=== PATIENT | male | born 1950 | race Caucasian/White ===

== ENCOUNTER → 2018-04-20 09:53 | Outpatient (CLI) | payer OTHER, SELFPAY ==
[2018-04-20 10:25] LABS: Add Manual Diff / Slide Review NO; Basophils Percent Auto 0.4 % (0-2); Eosinophils Percent Auto 2.8 % (2-4); Hematocrit 41.7 % (41-53); Hemoglobin 14.2 g/dL (13.5-17.5); Lymphocytes Percent Auto 22.9 % (25-40); Mean Corpuscular Hemoglobin 32.6 PG (26-34); Mean Corpuscular Volume 96.1 fL (80-100); Monocytes Percent Auto 9.3 % (3-14); Neutrophils Absolute Auto 4400 /uL (3000-5900); Neutrophils Percent Auto 64.6 % (50-75); Platelet Count 151 X10^3/uL (150-400); Red Blood Cell Count 4.34 X10^6/uL (4.5-5.9); Red Cell Distribution Width 13.2 % (11.6-14.8); White Blood Cell Count 6.7 X10^3/uL (4.5-11.0)
[2018-04-20 11:07] LABS: Alanine Aminotransferase 47 IU/L (21-72); Albumin 3.9 g/dL (3.5-5.0); Albumin Globulin Ratio 1.5 (1.0-2.8); Alkaline Phosphatase 49 U/L (38-126); Aspartate Aminotransferase 80 IU/L (17-59); Bilirubin Total 0.8 mg/dL (0.2-1.3); Bilirubin Unconjugated 0.5 mg/dL (0.0-1.1); Globulin 2.6 g/dL (1.7-4.1); HEMOLYSIS < 15 (0-50); Total Protein 6.5 g/dL (6.3-8.2)
== END ==
PROVIDERS: Family Provider Internal Medicine; PCP Internal Medicine; Visit Provider Podiatrist
DX: B35.1 Tinea unguium (principal)
CPT/HCPCS: 36415; 80076; 85025

== ENCOUNTER 2018-06-20 07:12 | Emergency (ER) | payer OTHER, SELFPAY ==
[2018-06-20 07:20] VITALS: BP 118/88; PULSE 85; RESP 20; TEMP 37.1; O2SAT 96; BMI 26.6
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
[2018-06-20 08:18] VITALS: BP 132/80; PULSE 63; RESP 18; O2SAT 97
[2018-06-20 09:00] VITALS: BP 132/85; PULSE 60; RESP 14; O2SAT 100
== END 2018-06-20 09:03 | disposition home or self-care (01) ==
PROVIDERS: Emergency Provider Emergency Medicine; Family Provider Internal Medicine; PCP Internal Medicine
DX: S13.4XXA Sprain of ligaments of cervical spine, initial encounter (principal); M54.5 Low back pain; V49.40XA Driver injured in collision with unspecified motor vehicles in traffic accident, initial encounter
CPT/HCPCS: 70450; 72125; 99282; 99283

== ENCOUNTER → 2018-07-24 08:01 | Outpatient (CLI) | payer OTHER, SELFPAY ==
[2018-07-24 09:06] LABS: Alanine Aminotransferase 25 IU/L (21-72); Albumin 4.1 g/dL (3.5-5.0); Albumin Globulin Ratio 1.7 (1.0-2.8); Alkaline Phosphatase 40 U/L (38-126); Aspartate Aminotransferase 66 IU/L (17-59); BUN Creatinine Ratio 26.4 (6-22); Bilirubin Total 0.7 mg/dL (0.2-1.3); Blood Urea Nitrogen 29 mg/dL (9-20); Calcium 9.1 mg/dL (8.4-10.2); Carbon Dioxide 30 mmol/L (22-32); Chloride 107 mmol/L (98-107); Cholesterol 174 mg/dL (140-199); Estimated Glomerular Filt Rate > 60.0 mL/min (>60); Globulin 2.4 g/dL (1.7-4.1); Glucose 93 mg/dL (80-110); HDL Cholesterol 68 mg/dL (40-60); HEMOLYSIS < 15 (0-50); LDL Cholesterol Calculated 90 mg/dL (<100); Potassium 4.4 mmol/L (3.4-5.1); Sodium 144 mmol/L (137-145); Total Protein 6.5 g/dL (6.3-8.2); Triglycerides 80 mg/dL (35-150); Uric Acid 5.9 mg/dL (3.5-8.5)
[2018-07-24 09:35] LABS: Prostate Specific Antigen Scrn 1.26 ng/mL (0.1-4.0)
== END ==
PROVIDERS: Family Provider Internal Medicine; PCP Internal Medicine; Visit Provider Internal Medicine
DX: I10 Essential (primary) hypertension (principal); E78.2 Mixed hyperlipidemia; M10.9 Gout, unspecified
CPT/HCPCS: 36415; 80053; 80061; 84550; G0103

== ENCOUNTER 2018-12-26 16:45 | Outpatient (RCR) | payer OTHER, SELFPAY ==
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
== END 2019-01-15 12:16 ==
LOC: PHYS 16:45
PROVIDERS: Family Provider Internal Medicine; PCP Internal Medicine; Visit Provider Internal Medicine
DX: M54.9 Dorsalgia, unspecified (principal)
CPT/HCPCS: 97110; 97140; 97162

== ENCOUNTER → 2019-04-15 06:58 | Outpatient (CLI) | payer OTHER, SELFPAY ==
[2019-04-15 09:05] LABS: HEMOLYSIS < 15 (0-50); Iron 78 ug/dL (49-181)
[2019-04-15 09:06] LABS: Alanine Aminotransferase 17 IU/L (21-72); Albumin Globulin Ratio 1.5 (1.0-2.8); Alkaline Phosphatase 45 U/L (38-126); Aspartate Aminotransferase 41 IU/L (17-59); Bilirubin Total 0.5 mg/dL (0.2-1.3); Bilirubin Unconjugated 0.5 mg/dL (0.0-1.1); Blood Urea Nitrogen 22 mg/dL (9-20); Calcium 9.2 mg/dL (8.4-10.2); Carbon Dioxide 28 mmol/L (22-32); Chloride 105 mmol/L (98-107); Estimated Glomerular Filt Rate > 60.0 mL/min (>60); Globulin 2.6 g/dL (1.7-4.1); Glucose 97 mg/dL (80-110); HEMOLYSIS < 15 (0-50); Potassium 4.3 mmol/L (3.4-5.1); Sodium 139 mmol/L (137-145); Total Protein 6.6 g/dL (6.3-8.2)
[2019-04-15 09:16] LABS: Percent Iron Saturation 24 % (20-50); Total Iron Binding Capacity 328 ug/dL (261-462); Transferrin 262 mg/dL (206-381)
[2019-04-15 09:33] LABS: Hepatitis B Surface Antigen NEGATIVE s/c (NEGATIVE)
[2019-04-15 09:51] LABS: Hep C Virus Ab w/Reflex Quant NEGATIVE s/c (NEGATIVE)
[2019-04-17 14:43] LABS: Ceruloplasmin 26 mg/dL (18-36)
== END ==
PROVIDERS: PCP Internal Medicine; Visit Provider Internal Medicine
DX: R94.5 Abnormal results of liver function studies (principal)
CPT/HCPCS: 36415; 80048; 80076; 82390; 82525; 83540; 83550; 86803; 87340

== ENCOUNTER → 2019-11-25 09:48 | Outpatient (CLI) | payer OTHER, SELFPAY ==
[2019-11-25 10:39] LABS: Alanine Aminotransferase 13 IU/L (<50); Albumin 4.3 g/dL (3.5-5.0); Albumin Globulin Ratio 1.9 (1.0-2.8); Alkaline Phosphatase 53 U/L (38-126); Aspartate Aminotransferase 31 IU/L (17-59); BUN Creatinine Ratio 20.8 (6-22); Bilirubin Total 0.8 mg/dL (0.2-1.3); Blood Urea Nitrogen 25 mg/dL (9-20); Calcium 9.3 mg/dL (8.4-10.2); Carbon Dioxide 28 mmol/L (22-32); Chloride 104 mmol/L (98-107); Cholesterol 232 mg/dL (140-199); Estimated Glomerular Filt Rate > 60.0 mL/min (>60); Globulin 2.3 g/dL (1.7-4.1); Glucose 90 mg/dL (80-110); HDL Cholesterol 77 mg/dL (40-60); HEMOLYSIS < 15 (0-50); LDL Cholesterol Calculated 143 mg/dL (<100); Potassium 4.7 mmol/L (3.4-5.1); Sodium 138 mmol/L (137-145); Total Protein 6.6 g/dL (6.3-8.2); Triglycerides 61 mg/dL (35-150)
[2019-11-25 11:08] LABS: Prostate Specific Antigen Scrn 1.68 ng/mL (0.1-4.0)
== END ==
PROVIDERS: PCP Internal Medicine; Visit Provider Internal Medicine
DX: I10 Essential (primary) hypertension (principal); E78.2 Mixed hyperlipidemia; Z12.5 Encounter for screening for malignant neoplasm of prostate
CPT/HCPCS: 36415; 80053; 80061; G0103

== ENCOUNTER → 2019-12-19 13:07 | Outpatient (CLI) | payer OTHER, SELFPAY ==
[2019-12-19 13:52] LABS: Add Manual Diff / Slide Review NO; Basophils Absolute Auto 0 /uL (0-100); Basophils Percent Auto 0.5 % (0-2); Eosinophils Absolute Auto 100 /uL (0-450); Eosinophils Percent Auto 1.7 % (2-4); Hematocrit 43.2 % (41-53); Hemoglobin 14.8 g/dL (13.5-17.5); Lymphocytes Absolute Auto 1500 /uL (1100-4500); Lymphocytes Percent Auto 18.3 % (25-40); Mean Corpuscular HGB Conc 34.3 % (30-36); Monocytes Absolute Auto 600 /uL (0-900); Monocytes Percent Auto 7.4 % (3-14); Neutrophils Absolute Auto 5900 /uL (1500-7000); Neutrophils Percent Auto 72.1 % (50-75); Platelet Count 152 X10^3/uL (150-400); Red Cell Distribution Width 13.9 % (11.6-14.8); White Blood Cell Count 8.2 X10^3/uL (4.5-11.0)
[2019-12-19 14:07] LABS: Alanine Aminotransferase 18 IU/L (<50); Albumin Globulin Ratio 1.4 (1.0-2.8); Alkaline Phosphatase 55 U/L (38-126); Aspartate Aminotransferase 43 IU/L (17-59); Bilirubin Total 0.5 mg/dL (0.2-1.3); Blood Urea Nitrogen 22 mg/dL (9-20); Calcium 9.6 mg/dL (8.4-10.2); Carbon Dioxide 28 mmol/L (22-32); Chloride 102 mmol/L (98-107); Estimated Glomerular Filt Rate > 60.0 mL/min (>60); Globulin 2.8 g/dL (1.7-4.1); Glucose 170 mg/dL (80-110); HEMOLYSIS < 15 (0-50); Potassium 3.6 mmol/L (3.4-5.1); Sodium 138 mmol/L (137-145); Total Protein 6.8 g/dL (6.3-8.2)
== END ==
PROVIDERS: PCP Internal Medicine; Visit Provider Orthopaedic Surgery Orthopaedic Surgery of the Spine
DX: Z01.818 Encounter for other preprocedural examination (principal); Z01.812 Encounter for preprocedural laboratory examination
CPT/HCPCS: 36415; 80053; 85025; 93005; 93010

== ENCOUNTER 2020-02-02 06:07 | Inpatient (IN) | payer OTHER, SELFPAY ==
[2020-01-22 09:00] VITALS: BMI 29.5
[2020-02-02] VITALS (14 sets, daily range): BP systolic 118–148; BP diastolic 67–88; PULSE 65–98; RESP 12–18; TEMP 36.1–36.9; O2SAT 93–97; BMI 29.1
--- NOTE | 2020-02-02 | DI.RAD.S_ITS ---
PROCEDURE: XR CERVICAL SPINE 2V OR 3V INDICATIONS: C6-7. C7-T1 ACDF TECHNIQUE: 3 view(s) of the cervical spine were acquired. COMPARISON: None. FINDINGS: Bones: Immediate postoperative evaluation showing C6-T1 anterior fusion plating with interbody disc prosthesis devices at the 2 intervening disc levels. Soft tissues: No prevertebral soft tissue swelling. IMPRESSION: Normal alignment after C6-T1 anterior fusion plating. Dictated by: Blaise Roper M.D. on 02/02/2020 at 11:54 Approved by: Blaise Roper M.D. on 02/02/2020 at 11:55
[2020-02-02] MEDS: LACTATED RINGERS 1,000 ML 42 ML IV ×3 (06:45→11:09)
[2020-02-02] MEDS: CEFAZOLIN 2 GM/100 ML FROZ.PIGGY IV ×3 (07:56→23:36)
--- NOTE | 2020-02-02 07:59 | PM.PREOP ---
Pre-operative Note Interval Note History & Physical reviewed/Exam performed by Physician: Yes Changes to H&P: No
--- NOTE | 2020-02-02 08:43 | SUR.OPER ---
Supine, head on gel donut. Arms padded with gel pads, tucked at sides, towel roll under shoulders. Safety belt at thigh. Legs uncrossed.
[2020-02-02] MEDS: BUPIVACAINE 0.25% W/ EPI 30 ML VIAL INJ (09:30)
--- NOTE | 2020-02-02 10:48 | P.OP_ITS ---
Operative Date/Time/Diagnoses Date of procedure: 02/02/20 Time of procedure: 07:50 Pre-op diagnosis: 1. C6-7, C7-T1 spinal stenosis 2. C6-7, C7-T1 spondylosis with radiculopathy Post-op diagnosis: same Procedure & Clinicians Procedure: 1. C6-7, C7-T1 anterior cervical diskectomy and fusion 2. C6-7, C7-T1 anterior interbody cage placement 3. C6-7, C7-T1 anterior instrumentation with plate and screw placement in C6 and C7 and T1 vertebrae 4. Utilization of microsurgical technique and operating microscope Same procedure as scheduled: Yes Indications: Patient has been having chronic neck pain and worsening cervical radiculopathy. Patient failed multiple conservative management with worsening pain weakness and numbness in her upper extremity. Patient has been having difficulty performing activity of daily living. After discussing risks benefits of treatment options, patient elected proceed with surgery. Surgeon: Georges Ray Public Safety Telecommunicator: Alisha Christie Click Yes if Unassisted: No Anesthesia Type: General Operative Notes Closure Type: primary Specimen(s): none sent Prosthetic devices, grafts, tissues, transplants, or devices: Globus Extend plate, PEEK cages Estimated Blood Loss (mL): 20 Blood products transfused: none Procedure in detail: Patient was seen in the preoperative area. Risks and benefits of the surgery was discussed with the patient. Operative consent was obtained and placed in the chart. Patient was then taken to the operative room. Prophylactic antibiotic was given less than 0.5 hr prior to skin incision. General anesthesia was administered. Patient was placed into a supine position on her radiolucent table. Bilateral shoulders were taped down to allow proper C- arm imaging. Anterior cervical area was prepped and draped in a sterile fashion. Time-out was performed at this time. Using lateral C-arm imaging, the level between C6 and T1 was identified and marked on patient's neck. A oblique incision from midline towards medial border of sternocleidomastoid muscle was made. The platysma muscle was incised in line with skin incision. Metzenbaum scissor was used to develop the plane between the medial border of sternocleidomastoid d and the strap muscles medially. The carotid sheath and its contents were identified and protected behind the hand- held retractor during the entire case. The plane between the carotid sheath and strap muscles was developed with Metzenbaum scissors. Dissection was made down to the level of the anterior cervical fascia. Longus colli muscle was incised on the anterior aspect of vertebral bodies bilaterally from C6-T1. Spinal needle was placed into the C6-7 disc space and confirmed with lateral C-arm imaging. Using microsurgical technique and operative microscope, anterior cervical diskectomy was performed at C6-7, C7-T1 level. This was done by removing the disc material, removing the anterior and posterior osteophytes posterior longitudinal ligaments along with performing bilateral foraminotomies at both levels. Patient was found to have severe central and foraminal stenosis at both levels. Patient's stenosis was fully decompressed after decompression was completed. After the diskectomy was completed, 2 anterior interbody cages were obtained. The cages were packed with DBM bone grafting material. One cage each along with the bone grafting material was then packed into the interbody spaces from C6-7, C7-T1 with one cage into each interbody level. After the cages were placed, the anterior cervical plate was stabilized to the C6-7, C7-T1 vertebrae using 2 screws at each each level. Total 6 screws were placed. After confirming placement of the hardware with AP and lateral C-arm imaging, the screws were locked into the plate using the locking mechanism and torque limiting screwdriver. After the hardware was placed and confirmed with AP and lateral C-arm imaging, the wound was irrigated with sterile normal saline. The platysma muscle and the subcutaneous tissue was closed with 2-0 Vicryl. The skin was closed with 4-0 Monocryl and Steri-Strips. Patient tolerated the procedure well. Patient was transferred recovery room in stable condition. There were no complications. Complications: none Post-operative Condition: stable Disposition: PACU Plan for aftercare: Admit to hospital for observation
--- NOTE | 2020-02-02 11:06 | SUR.PHASEI ---
pt arrived to pacu flailing around and turning side to side. Denies pain at present time Pt states he has anxiety at times and would like some medication for anxiety.
[2020-02-02] MEDS: LORazepam 2 MG/ML INJ 0.5 MG IV (11:11)
--- NOTE | 2020-02-02 13:50 | PT.IIE ---
Current Diagnoses Spondylolisthesis, cervical region (02/02/20) Spinal stenosis, cervical region (02/02/20) Surgery Performed Operation Date: 02/02/20 07:45 Actual Procedures p C6-7, C7-T1 ACDF w/ anterior instrumentation - Georges Ray MD Surgical History (Last Updated 01/22/20 @ 09:08 by Jessica Owens, RN) Anesthesia (Resolved) History of surgical removal of testicle (Resolved ~1978) Hx of bilateral cataract extraction (Acute ~2016) S/P epidural steroid injection (Acute ~2007) Status post debridement (Resolved ~2013) Medical History (Last Updated 01/22/20 @ 09:12 by Jessica Owens RN) Arthralgia (Chronic 01/29/18) Arthritis (Acute) Benign paroxysmal positional vertigo (Chronic) Cardiac arrhythmia (Chronic) Chicken pox (Resolved ~1957) Depression (Acute) Dorsalgia (Chronic 01/29/18) Erectile dysfunction (Chronic) Essential hypertension (Chronic) Fractures (Resolved ~2012) Gastroesophageal reflux disease without esophagitis (Chronic) Generalized anxiety disorder (Chronic 08/10/11) Gout (Acute) Gout of multiple sites (Chronic) Hearing deficit (Chronic) Hearing impaired (Acute) Herpes (Resolved ~1977) HLD (hyperlipidemia) (Acute) HTN (hypertension) (Acute) Major depression in complete remission (Chronic 08/10/11) Measles (Resolved ~1965) Mixed hyperlipidemia (Chronic) Rosacea (Acute) Sciatica (Acute) Uncomplicated opioid dependence (Resolved 01/29/18) Physical Therapy Inpatient Evaluation/Re-Eval M1 PT/OT-IP Prior Functional Status Start: 02/02/20 13:25 Freq: NEEDED Status: Active Protocol: Document 02/02/20 14:26 LRN (Rec: 02/02/20 15:03 LRN [id number]) Medical Review Prior Functional Status Medical History Reviewed Yes Diet/Fluid Consistency Regular Communication Normal Mobility and Gait Without assistive device Activities of Daily Living and IADL's Independent Prior Functional Level (Other details) Amb without assistive device Social History Household Members spouse Living Arrangements Mobile home Number of Floors (Floors) One Floor Number of Stairs To Enter/Railing? 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 PT-IP Current Condition Start: 02/02/20 13:25 Freq: NEEDED Status: Active Protocol: Document 02/02/20 14:26 LRN (Rec: 02/02/20 15:03 LRN [id number]) Physical Therapy Current Condition Current Condition Evaluation Date 02/02/20 Treatment Diagnosis Post op: C6-7, C7-T1 ACDF w/ anterior instrumentation Onset Date 02/02/20 Precautions Cervical Spine Precautions Soft Collar for Comfort,No Heavy Lifting,Log Roll Brace Neck soft brace Weight Bearing Status Weight Bearing Status Full Weight Bearing M3 PT-IP Subjective Start: 02/02/20 13:25 Freq: NEEDED Status: Active Protocol: Document 02/02/20 14:26 LRN (Rec: 02/02/20 15:03 LRN [id number]) Subjective Physical Therapy Visit Type Type Initial Evaluation Visit Start Time 13:50 Visit Stop Time 14:30 Total Visit Minutes 40 Physical Therapy Visit Comments Patient Comments c/o foggy head on standing. After ambulation became nauseated. Nausea subsided after supine lying ~10'. Patient Goals Pt goal is to be discharged tomorrow to home. Therapy Pain Assessment Pain When Pain Assessed At Rest Pain Present Pain Present Pain Reported Location Bilateral Shoulder Intensity 5 Scale Used Numeric (1 - 10) M4 PT-IP Mobility and Gait Start: 02/02/20 13:25 Freq: NEEDED Status: Active Protocol: Document 02/02/20 14:26 LRN (Rec: 02/02/20 15:03 LRN [id number]) PT-Bed Mobility Assessment Rolling Type of Rolling Log Rolling,Bilateral Level of Assist Independent Supine to Sit Supine to Sit Independent Sit to Supine Sit to Supine Independent PT-Transfer Assessment Sit to and From Stand Sit to and from Stand Independent Equipment Transfer Assistive Device Gait Belt Transfers Transfer Destination Toilet Transfer Technique Walked to bathroom Transfer Ability Level of Assist Independent Gait Assessment Gait Gait Assistance Required: Independent,Standby Assistance Distance (Feet) 50 Able to Maintain Weight Bearing Status Yes During Gait Assistive Devices Assistive Device Gait Belt Orthotic/Prosthetic Devices or Brace: Yes Gait Deviations General Gait Pattern Within Normal Limits Factors Limiting Gait Function Factors Limiting Gait Function Pain Comments Gait Comments Pt wore neck brace throughout the evaluation. Function limited due to nausea vs pain. Stair Climbing Assessment Comments Stair Climbing Comments Pt became nauseated after gait ; therefore unabe to assess stair ambulation. PT-Balance Assessment Sitting Balance and Reactions Static Sitting Balance Ability Normal Dynamic Sitting Balance Ability Good Standing Balance and Reactions Static Standing Balance Ability Good Comments Other Balance Tests/Deviations/Treatment Pt able to walk steadily : without difficulty. M5 PT-IP Objective Assessments Start: 02/02/20 13:25 Freq: NEEDED Status: Active Protocol: Document 02/02/20 14:26 LRN (Rec: 02/02/20 15:03 LRN [id number]) Orientation Orientation/Cognition Level of Alertness Alert Orientation Name Language Function Ability No Deficits Noted Safety Awareness Understands Safety Issues Memory Description No Deficits Noted Gross Range of Motion Upper Extremity ROM Assessment Within Functional Limits Lower Extremity ROM Assessment Within Functional Limits Strength Upper Extremity Strength Assessment Bilaterally Impaired Lower Extremity Strength Assessment Within Functional Limits Comments Strength Comments Strength testing deferred and limited to 3/5 without difficulty. M6 PT-IP Treatment Start: 02/02/20 13:25 Freq: NEEDED Status: Active Protocol: Document 02/02/20 14:26 LRN (Rec: 02/02/20 15:03 LRN [id number]) Physical Therapy Treatment Education Education Provided Precautions Other Treatments Other Treatment Performed Issued & reviewed post op cervical guidelines. M7 PT-IP Assessment and Plan Start: 02/02/20 13:25 Freq: NEEDED Status: Active Protocol: Document 02/02/20 14:26 LRN (Rec: 02/02/20 15:03 LRN [id number]) PT Summary Assessment and Plan Potential Rehabilitation Potential Excellent Status of Condition at Evaluation Evolving Summary Impairments Pain,ROM,Activity Tolerance Assessment Summary Pt presents with limited neck mobility as expected following his post-op C6-7, C7-T1 anterior C/S diskectomy & fusion, C6-C7, C7- T1 anterior interbody cahge placement l& C6-&, C7-T1 anterior instumentation w/ plate & screw in C6 & C7 & T1 vertebrae. Pt is limited with activity tolerance after getting out of bed to walk around his room. He needed education in log roll technique to get out of bed. After ambulation he became nauseous requiring resting in supine. Pt shows good mobility, but poor transfer mechanics and poor endurance today. He is expected to do well with therapy with more time and opportunity to get in /out of bed properly. Goals Bed Mobility Goal Independent Transfer Goal Independent Gait Goal Independent Gait Distance 100' Days to Meet Goals 1 Frequency of Treatment Frequency Of Treatment Twice a Day Treatment Plan Physical Therapy Treatment Plan Transfer Training,Gait Training,Post Op Education Other Recommendations and Next Treatment Log roll for appropriate Focus sequencing and transfers in/ out of bed. Recommendations To Nursing Amount of Assist Needed Standby Assistance Discharge Recommendations PT Discharge Recommendations Home with Assistance Other Discharge Recommendations Pt to cont to use his soft cervical collar for comfort. Transportation Needs at Discharge Private Vehicle
[2020-02-02] MEDS: ONDANSETRON 4 MG/2 ML INJ IV (14:19)
[2020-02-02] MEDS: SODIUM CHLORIDE 0.9% 1,000 ML 100 ML IV ×2 (14:57→23:37)
[2020-02-02] MEDS: GABAPENTIN 300 MG CAPSULE PO ×2 (16:30→21:26)
[2020-02-02] MEDS: OXYCODONE IR 5 MG TABLET 10 MG PO ×2 (17:11→21:29)
[2020-02-02] MEDS: DOCUSATE 100 MG CAPSULE PO (21:26)
[2020-02-02] MEDS: SENNOSIDES 8.6 MG TABLET 17.2 MG PO (21:26)
[2020-02-02] MEDS: CYCLOBENZAPRINE 5 MG TABLET PO (23:37)
[2020-02-03] MEDS: ONDANSETRON 4 MG/2 ML INJ IV
[2020-02-03 00:08] VITALS: BP 147/92; PULSE 66; RESP 16; TEMP 37.7; O2SAT 95
--- NOTE | 2020-02-03 01:32 | PC.NURSE ---
Patient had emesisx2 at the start of shift, zofran 4mg IV given at 0030. Patient has minimal pain 2/10. VSS. Patient has wound incision bandage gauze w/ tagaderm which is clean/dry and intact. Patient CMS good. Patient was educated about the use of IS.
[2020-02-03 05:18] VITALS: BP 136/88; PULSE 64; RESP 18; TEMP 36.6; O2SAT 97
[2020-02-03] MEDS: OXYCODONE IR 5 MG TABLET 10 MG PO ×2 (05:29→10:34)
--- NOTE | 2020-02-03 07:37 | PM.PNPO.1 ---
Subjective Subjective Date Patient Seen: 02/03/20 Time Patient Seen: 07:38 Interval history: POD #1 s/p C6-7, C7-T1 ACDF with Dr. Ray. His pain is well controlled with Oxycodone and Flexeril. He does have nausea since surgery. He is voiding without difficulty or assistance. He is ambulating safely. No difficulty swallowing. Exam Vital Signs (past 8 hours): - 02/03/20 00:08 02/03/20 05:18 Temperature 99.8 F H 97.8 F Pulse Rate 66 64 Respiratory Rate 16 18 Blood Pressure 147/92 H 136/88 Pulse Oximetry 95 97 Oxygen Delivery Method Nasal Cannula Oxygen Flow Rate 0 Narrative Exam Narrative: Patient is alert orient x3. Resting in bed comfortably. Anterior neck dressing is CDI. Soft collar in place. Automotive Teacher strength strong equal. No hoarseness. Assessment & Plan Post-op Postoperative Procedures: Procedures Operation Date: 02/02/20 07:45 Actual Procedures Side Surgeon p C6-7, C7-T1 ACDF w/ anterior instrumentation Georges Ray MD Patient mobilize with physical therapy today. Continue current pain control. Patient will discharge home with Zofran for nausea. Plan to DC home today if ambulating safely with adequate pain control. Quality VTE Deep Vein Thrombosis/Pulmonary Embolism Present on Admission: No
[2020-02-03 07:40] VITALS: BP 153/94; PULSE 64; RESP 16; TEMP 36.8; O2SAT 98
--- NOTE | 2020-02-03 08:44 | OT.IP.EVAL ---
Current Diagnoses Spondylolisthesis, cervical region (02/02/20) Spinal stenosis, cervical region (02/02/20) Surgery Performed Operation Date: 02/02/20 07:45 Actual Procedures p C6-7, C7-T1 ACDF w/ anterior instrumentation - Georges Ray MD Past Medical History (Last Updated 01/22/20 @ 09:12 by Jessica Owens, RN) Arthralgia (Chronic 01/29/18) Arthritis (Acute) Benign paroxysmal positional vertigo (Chronic) Cardiac arrhythmia (Chronic) Chicken pox (Resolved ~1957) Depression (Acute) Dorsalgia (Chronic 01/29/18) Erectile dysfunction (Chronic) Essential hypertension (Chronic) Fractures (Resolved ~2012) Gastroesophageal reflux disease without esophagitis (Chronic) Generalized anxiety disorder (Chronic 08/10/11) Gout (Acute) Gout of multiple sites (Chronic) Hearing deficit (Chronic) Hearing impaired (Acute) Herpes (Resolved ~1977) HLD (hyperlipidemia) (Acute) HTN (hypertension) (Acute) Major depression in complete remission (Chronic 08/10/11) Measles (Resolved ~1965) Mixed hyperlipidemia (Chronic) Rosacea (Acute) Sciatica (Acute) Uncomplicated opioid dependence (Resolved 01/29/18) Surgical History (Last Updated 01/22/20 @ 09:08 by Jessica Owens, NATY) Anesthesia (Resolved) History of surgical removal of testicle (Resolved ~1978) Hx of bilateral cataract extraction (Acute ~2016) S/P epidural steroid injection (Acute ~2007) Status post debridement (Resolved ~2013) Occupational Therapy Inpatient Evaluation/Re-Eval M1 PT/OT-IP Prior Functional Status Start: 02/02/20 13:25 Freq: NEEDED Status: Active Protocol: Document 02/02/20 14:26 LRN (Rec: 02/02/20 15:03 LRN [id number]) Medical Review Prior Functional Status Medical History Reviewed Yes Diet/Fluid Consistency Regular Communication Normal Mobility and Gait Without assistive device Activities of Daily Living and IADL's Independent Prior Functional Level (Other details) Amb without assistive device Social History Household Members spouse Living Arrangements Mobile home Number of Floors (Floors) One Floor Number of Stairs To Enter/Railing? 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 Prior Functional Level (Other details) Amb without assistive device Social History Household Members spouse Living Arrangements Mobile home Number of Floors (Floors) One Floor Number of Stairs To Enter/Railing? 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 instrum Diagnosis Onset Date 02/02/20 Post Operative Precautions Cervical Spine Precautions Soft Collar for Comfort,No Heavy Lifting,Log Roll Weight Bearing Status Weight Bearing Status Weight Bear as Tolerated M3 OT- IP Subjective and Pain Start: 02/03/20 09:26 Freq: Status: Active Protocol: Document 02/03/20 08:25 [facility] (Rec: 02/03/20 09:42 [facility] [id number]) OT- Subjective Occupational Therapy Visit Type Type Initial Evaluation Visit Start Time 08:25 Visit Stop Time 08:44 Total Visit Minutes 19 Occupational Therapy Visit Comments Patient Comments Pt agreeable to do OT eval. Patient/Caregiver Goals To go home. OT Pain Assessment Pain When Pain Assessed At Rest Pain Present Pain Present Pain Reported Location Bilateral Shoulder Intensity 3 Scale Used Numeric (1 - 10) M4 OT- IP ADL's Start: 02/03/20 09:26 Freq: Status: Active Protocol: Document 02/03/20 08:25 [facility] (Rec: 02/03/20 09:42 [facility] [id number]) OT [facility] Comments OT Self-Feeding Comments Educated pt on eating softer food, slow rate, cold food can be helpful and to sit upright . Information sheet of swallowing suggested gone over with pt. OT ADL-Grooming Comments OT Grooming Comments Educated to lean forwards at hips or spit into a cup for tooth brushing. OT ADL-Dressing General Eval Upper Body Dressing Ability Independent Lower Body Dressing Ability Independent Comments OT Dressing Comments After initial education, pt able to independently mindy/ doff cervical soft collar . OT ADL-Toileting General Evaluation Toileting Ability Independent Comments OT Toileting Comments Pt independently using the toilet on his own. OT ADL-Bathing Comments OT Bathing Comments Pt states to shower at home. M5 OT- IP IADL's Start: 02/03/20: Freq: Status: Active Protocol: Document 02/03/20:25 [facility] (Rec: 02/03/20 09:42 [facility] [id number]) OT-Instrumental Activities of Daily Living Home Safety Awareness Home Safety Comments Pt's to assist with all IADL needs and care for all the animals at home including dogs, horses, and parrot. Medication Management Medication Management No Deficits Identified Money Management Money Management Comments Pt's does the bills at home. Meal Preparation Meal Preparation Caregiver Provides Assist Pressurization Mechanic Pressurization Mechanic Caregiver Provides Assist Driving Driving Comments Pt aware not to drive for two weeks initially or until cleared by surgeon. M6 OT- IP Functional Cognition Start: 02/03/20: Freq: Status: Active Protocol: Document 02/03/20 08:25 [facility] (Rec: 02/03/20 09:42 [facility] [id number]) Cognitive Factors Limiting Selfcare Function Cognitive Ability Level of Alertness Alert Patient Orientation Name,Age,Birthday,Month,Date, Year,Day of Week,Place, Situation Attention Span Ability Capable of Focused Attention, Capable of Sustained Attention Ability to Follow Commands Able to Follow Multi-Step Commands Memory Description No Deficits Noted Safety Awareness No Deficits Noted Problem Solving Ability No deficits Noted Cognitive Comments Cognitive Assessment Comments No cognitive deficits noted. OT- Vision and Hearing OT- Hearing Assessment OT- Hearing Assessment WFL OT- Vision Assessment Visual Acuity WFL M7 OT- IP Mobility and Balance Start: 02/03/20: Freq: Status: Active Protocol: Document 02/03/20 08:25 [facility] (Rec: 02/03/20 09:42 [facility] [id number]) OT- Bed Mobility Assessment Supine to Sit Supine to Sit Assist Standby Assistance Sit to Supine Sit to Supine Assist Standby Assistance OT-Transfer Assessment Sit to and From Stand Sit to and from Stand Independent Transfers Transfer Ability Independent Technique Transfer Destination Bed,Chair,Toilet Transfer Technique Stand Step Pivot Devices Transfer Assistive Devices None Comments Mobility Comments Initially pt pulling up into long sitting due to habit and had to educate pt on log rolling to roll to his side first and then push up on his arms therefore putting less strain on his neck while getting up and down from the bed. OT- Gait Assessment Gait Gait Assistance Required: Independent OT- Balance Assessment Sitting Balance and Reactions Static Sitting Balance Ability Normal Dynamic Sitting Balance Ability Normal Standing Balance and Reactions Static Standing Balance Ability Normal Dynamic Standing Balance Ability Good M8 OT- IP Objective Assessments Start: 02/03/20 09:26 Freq: Status: Active Protocol: Document 02/03/20 08:25 [facility] (Rec: 02/03/20 09:42 [facility] [id number]) OT Strength Upper Extremity Strength Assessment Within Functional Limits OT-Muscle Tone Assessment Muscle Tone WNL Yes M9 OT- IP Assessment and Plan Start: 02/03/20 09:26 Freq: Status: Active Protocol: Document 02/03/20 08:25 [facility] (Rec: 02/03/20 09:42 [facility] [id number]) OT Summary Assessment and Plan Potential Rehabilitation Potential Excellent Analytic Complexity at Evaluation Low Summary OT Impairments Functional Mobility Progress Towards Goals Progressing Toward Goals Assessment Summary Pt low complexity and doing well and mainly just needing initial cues for log rolling and techniques to adhere to cervical precautions. Pt looking to go home and to assist pt as needed. Goals Patient/Caregiver Education Goal Demonstrate Post-Op Precautions Days to Meet Goals 1 Frequency of Treatment Frequency Of Treatment Once a Day Treatment Plan OT Treatment Plan Patient/Family Education, Discharge Planning Other Treatment Recommendations and Next Shower if still here. Treatment Focus Discharge Recommendations OT Discharge Recommendations Home with Assistance Transportation Needs at Discharge Private Vehicle
--- NOTE | 2020-02-03 09:05 | SLP.IPNOTE ---
Swallow and voice screening complete. Pt states swallow is a little painful but appears to be WNL following ACDF. Pt consumed thin liquid and dry cracker without overt s/sx of aspiration or complaints. Voice is perceived to be WNL, and pt reports same. Information was provided orally and in writing RE potential effects of ACDF surgery on voice and swallow. Pt verbalized understanding. No formal evaluation or treatment warranted at this time.
--- NOTE | 2020-02-03 09:12 | CM.DANOTE ---
DCP/Assessment: Reviewed chart. Patient admitted for elective spine surgery performed on 02-02-[address] Ray. PCP is Dr. Maki. Primary payor is [employer]. Met with patient explained CM/SW role. Patient sitting in recliner, alert and oriented at time of visit. Patient reports that he plans to d/c home today. Patient reports that he is employed and primarily I prior to surgery. Patient indicates that his biggest issue prior to surgery was back pain. Patient resides with spouse/Mahsa and does not anticipate any d/c planning needs. Patient has outpatient orthopedic follow up appointment on 02-17-20. P: Home today. DEEJAY Nogueira Discharge Planning/Care Management CM Discharge Assessment Start: 02/03/20 09:10 Freq: Status: Active Protocol: Document 02/03/20 09:10 KJS (Rec: 02/03/20 09:12 KJS [id number]) Discharge Planning Assessment Assigned Commutator Operator DEEJAY Nogueira DPOA/Assigned Designee Name Mahsa Cheema (spouse) [phone] Advance Directives? No History Provided By Patient,Medical Record Prior Living Arrangements Mobile home Household Members spouse Type of transporation used prior to Drives own vehicle admit Independent with ADL's Yes Is patient alert and oriented? Yes Caregiver for Another No Barriers to Discharge No Discharge Plan Home Transportation Arrangement Family to provide transport. Referrals Initiated None needed Whiteboard Updated in Patient Room with Yes name and ext. # of Commutator Operator Review Status In Process Next Review Type Continued Stay Review Pre-Anesthesia Assessment Start: 01/22/20 09:00 Freq: Status: Complete Protocol: Document 01/22/20 09:00 CAB (Rec: 01/22/20 09:25 CAB [id number]) Pre-Anesthesia Assessment Patient Information Reviewed Via Phone Assessment Assessment Completed With Patient Diagnostic Results BMP/CMP,CBC,EKG Comment Labs/EKG @ [facility] 12/19/19 Primary Care Provider Rich Maki Seen Specialist in Last 12 Months Yes Specialist Seen Orthopedist Primary Language Occitan Clamp Jig Assembler Required No Height 175.26 cm Weight 90.718 kg Body Mass Index (BMI) 29.5 Hearing Ability Hard of Hearing,Use of Hearing Aid Visual Assist Magnifying Glass Dentition Type Teeth, Natural Present Barriers to Learning None Other Aids No Hx Anesthesia Reactions No Hx Family Anesthesia Reaction No Hx Malignant Hyperthermia No Hx Blood Transfusions No Anesthesia Review Requested No alcohol intake current alcohol intake frequency a few times a week Smoking Status Former smoker how long ago did patient quit smoking Quit 1977 Substance Use Type marijuana Comment Pt advised not to smoke marijuana 24 hours prior Pain Present Pain Reported Musculoskeletal Symptoms Joint Pain,Limited Range of Motion,Muscle Weakness,Neck Pain,Radiating Pain into Limb History of Falling (Recent or History of No ) Patient is completely paralyzed or No completely immobile Mental Status Oriented to own ability Is patient on oxygen? No Does patient have KEATING/SOB No Hx Sleep Apnea No Currently Taking a Beta Aster No Can You Climb a Flight of Stairs Without Yes SOB Hx Chest Pain No Hx SOB No Hx Syncope or Dizziness No Anti-Coagulant Therapy No Has a Candle Cutter No Cardiac Testing No Hx Pacemaker/ICD No Pacemaker Rep Required? No Cardiac Clearance Received Not Applicable Diet Type At Home Regular,Low Fat dysphagia No Bladder Pattern Urgency Urinary Catheter Present No Hx Urinary Self Catheterization No Diabetes No Hx Drug Resistant Organism No Presence of External or Internal Medical No Devices Conner exposure No Have you had any close contact with No someone diagnosed with NOVEL CORONAVIRUS ? Have you traveled outside the [facility] in the last 30 days? Marital Status Lives With spouse Prior Living Arrangements Mobile home Number of Floors (Floors) One Floor Support System Spouse Does the Patient Have Assistance After Yes Surgery Patient Discharge Plan Description Return Home Comment Pt advised same day surgery per surgeon Feels Safe in Current Environment Yes Been Physically Hurt or Threatened By a No Person in Current Environment Do you have thoughts of harming yourself None or others? Are you currently considering suicide? No Do you have a plan to hurt yourself or No Plan others? Do You Have Any Spiritual Beliefs That No May Affect Your HC Choices? Do You Have Any Cultural Practices That No May Affect Your HC Choices? Comment Anthony Who Can We Speak to About Patient's Care Family, friends Identifying Code for Release of Patient Declines to issue Information Health Care Proxy/Next of Kin Mahsa () Health Care Proxy Emergency Contact Name Mahas () Emergency Contact Advance Directives? No Power of Stockholder No PAC Instructions Durable medical equipment, Medications to take/avoid, Nasal antibiotic,No ETOH/ petroleum product on skin DOS, NPO,Post-op transportation,Pre -surgical wash,Sensory aids, Sturdy shoes/comfortable clothes,Do not bring valuables and remove jewelry
--- NOTE | 2020-02-03 09:48 | PT.IPTN ---
Current Diagnoses Spondylolisthesis, cervical region (02/02/20) Spinal stenosis, cervical region (02/02/20) Surgery Performed Operation Date: 02/02/20 07:45 Actual Procedures p C6-7, C7-T1 ACDF w/ anterior instrumentation - Georges Ray MD Physical Therapy Treatment Note M2 PT-IP Current Condition Start: 02/02/20 13:25 Freq: NEEDED Status: Active Protocol: Document 02/02/20 14:26 LRN (Rec: 02/02/20 15:03 LRN [id number]) Physical Therapy Current Condition Current Condition Evaluation Date 02/02/20 Treatment Diagnosis Post op: C6-7, C7-T1 ACDF w/ anterior instrumentation Onset Date 02/02/20 Precautions Cervical Spine Precautions Soft Collar for Comfort,No Heavy Lifting,Log Roll Brace Neck soft brace Weight Bearing Status Weight Bearing Status Full Weight Bearing M3 PT-IP Subjective Start: 02/02/20 13:25 Freq: NEEDED Status: Active Protocol: Document 02/03/20 09:48 CLB (Rec: 02/03/20 10:51 CLB [id number]) Subjective Physical Therapy Visit Type Type Treatment Note Visit Start Time 09:48 Visit Stop Time 09:58 Total Visit Minutes 10 Number of SUPPLIER QUALITY SPECIALIST Visits 1 Physical Therapy Visit Comments Patient Comments Pt agreeable to ambulate with therapy but refused bed mobility as pt states OT provided log roll education. Therapy Pain Assessment Pain When Pain Assessed At Rest Pain Present Pain Present Pain Reported Location Bilateral Shoulder Intensity 4 Scale Used Numeric (1 - 10) M4 PT-IP Mobility and Gait Start: 02/02/20 13:25 Freq: NEEDED Status: Active Protocol: Document 02/03/20 09:48 CLB (Rec: 02/03/20 10:51 CLB [id number]) PT-Transfer Assessment Sit to and From Stand Sit to and from Stand Independent Equipment Transfer Assistive Device Gait Belt Transfers Transfer Destination Chair Transfer Ability Level of Assist Independent Comments Mobility Comments Pt in chair upon arrival, pt dressed with shoes on and ready for discharge. Pt able to stand from chair without c/ o dizziness or light headedness. Gait Assessment Gait Gait Assistance Required: Independent,Standby Assistance Distance (Feet) 200 Able to Maintain Weight Bearing Status Yes During Gait Assistive Devices Assistive Device Gait Belt Orthotic/Prosthetic Devices or Brace: Yes Gait Deviations General Gait Pattern Within Normal Limits Factors Limiting Gait Function Factors Limiting Gait Function Pain Comments Gait Comments Pt ambulated ~200ft SBA, pt has steady gait with good safety awareness. PT-Balance Assessment Sitting Balance and Reactions Static Sitting Balance Ability Normal Dynamic Sitting Balance Ability Good Standing Balance and Reactions Static Standing Balance Ability Good M5 PT-IP Objective Assessments Start: 02/02/20 13:25 Freq: NEEDED Status: Active Protocol: Document 02/02/20 14:26 LRN (Rec: 02/02/20 15:03 LRN [id number]) Orientation Orientation/Cognition Level of Alertness Alert Orientation Name Language Function Ability No Deficits Noted Safety Awareness Understands Safety Issues Memory Description No Deficits Noted Gross Range of Motion Upper Extremity ROM Assessment Within Functional Limits Lower Extremity ROM Assessment Within Functional Limits Strength Upper Extremity Strength Assessment Bilaterally Impaired Lower Extremity Strength Assessment Within Functional Limits Comments Strength Comments Strength testing deferred and limited to 3/5 without difficulty. M6 PT-IP Treatment Start: 02/02/20 13:25 Freq: NEEDED Status: Active Protocol: Document 02/02/20 14:26 LRN (Rec: 02/02/20 15:03 LRN [id number]) Physical Therapy Treatment Education Education Provided Precautions Other Treatments Other Treatment Performed Issued & reviewed post op cervical guidelines. M7 PT-IP Assessment and Plan Start: 02/02/20 13:25 Freq: NEEDED Status: Active Protocol: Document 02/03/20 09:48 CLB (Rec: 02/03/20 10:51 CLB [id number]) PT Summary Assessment and Plan Potential Rehabilitation Potential Excellent Status of Condition at Evaluation Evolving Summary Impairments Pain,ROM,Activity Tolerance Assessment Summary Pt is independent for transfers and SBA during ambulation with distance ~ 200ft. Pt had no c/o dizziness and has safe steady gait. Goals Bed Mobility Goal Independent Transfer Goal Independent Gait Goal Independent Gait Distance 100' Days to Meet Goals 1 Frequency of Treatment Frequency Of Treatment Twice a Day Treatment Plan Physical Therapy Treatment Plan Transfer Training,Gait Training,Post Op Education Recommendations To Nursing Amount of Assist Needed Standby Assistance Discharge Recommendations PT Discharge Recommendations Home with Assistance Other Discharge Recommendations Pt to cont to use his soft cervical collar for comfort. Transportation Needs at Discharge Private Vehicle
[2020-02-03] MEDS: SIMVASTATIN 20 MG TABLET PO (10:33)
[2020-02-03] MEDS: GABAPENTIN 600 MG TABLET PO (10:33)
[2020-02-03] MEDS: lisinopriL 20 MG TABLET PO (10:33)
[2020-02-03] MEDS: allopurinoL 300 MG TABLET PO (10:33)
[2020-02-03] MEDS: DOCUSATE 100 MG CAPSULE PO (10:33)
--- NOTE | 2020-02-03 11:24 | PC.NURSE ---
Discharge Pt states pain controlled with oxy. Up independently in room. Soft collar in place. Dressing CDI. PIV removed prior to d/c. D/c instructions provided to pt and his . Aware to f/u with Dr Ray for f/u apts as well as for any additional questions or concerns. Pt states he took all belongings with him. Left in w/c with TOPOLOGY TEACHER escort to car with his .
== END 2020-02-03 11:10 | disposition home or self-care (01) | DRG 473 ==
PROVIDERS: Admitting Provider Orthopaedic Surgery Orthopaedic Surgery of the Spine; PCP Internal Medicine; Referring Provider Orthopaedic Surgery Orthopaedic Surgery of the Spine; Visit Provider Orthopaedic Surgery Orthopaedic Surgery of the Spine
PROC: 0RG10A0 Fusion of Cervical Vertebral Joint with Interbody Fusion Device, Anterior Approach, Anterior Column, Open Approach (ICD-10-PCS; principal; 2020-02-02 07:45)
DX: M47.22 Other spondylosis with radiculopathy, cervical region (principal); M79.18 Myalgia, other site; I10 Essential (primary) hypertension; E78.5 Hyperlipidemia, unspecified; M10.9 Gout, unspecified; F32.9 Major depressive disorder, single episode, unspecified; M48.02 Spinal stenosis, cervical region; M48.03 Spinal stenosis, cervicothoracic region; M47.23 Other spondylosis with radiculopathy, cervicothoracic region; Z87.891 Personal history of nicotine dependence; R11.0 Nausea
CPT/HCPCS: 72040; 76000; 97116; 97162; 97165; 97535; C1776; J0690; J1100; J1170; J2060; J2250; J2405; J2704; J3010

== ENCOUNTER → 2021-02-17 07:46 | Outpatient (CLI) | payer MEDICARE, OTHER, SELFPAY ==
[2020-04-07 14:03] VITALS: BMI 29.1
[2021-02-17 09:12] LABS: Alanine Aminotransferase 10 IU/L (<50); Albumin 3.8 g/dL (3.5-5.0); Albumin Globulin Ratio 1.6 (1.0-2.8); Alkaline Phosphatase 57 U/L (38-126); Aspartate Aminotransferase 37 IU/L (17-59); Bilirubin Total 0.5 mg/dL (0.2-1.3); Blood Urea Nitrogen 19 mg/dL (9-20); Calcium 9.4 mg/dL (8.4-10.2); Carbon Dioxide 27 mmol/L (22-32); Chloride 104 mmol/L (98-107); Cholesterol 163 mg/dL (140-199); Estimated Glomerular Filt Rate > 60.0 mL/min (>60); Globulin 2.4 g/dL (1.7-4.1); Glucose 98 mg/dL (80-110); HDL Cholesterol 59 mg/dL (40-60); HEMOLYSIS < 15 (0-50); LDL Cholesterol Calculated 92 mg/dL (<100); Potassium 4.3 mmol/L (3.4-5.1); Sodium 136 mmol/L (137-145); Total Protein 6.2 g/dL (6.3-8.2); Triglycerides 58 mg/dL (35-150); Uric Acid 5.1 mg/dL (3.5-8.5)
[2021-02-17 09:39] LABS: Prostate Specific Antigen Scrn 1.53 ng/mL (0.1-4.0)
== END ==
PROVIDERS: PCP Internal Medicine; Referring Provider Internal Medicine; Visit Provider Internal Medicine
DX: E78.2 Mixed hyperlipidemia (principal); Z12.5 Encounter for screening for malignant neoplasm of prostate; I10 Essential (primary) hypertension; M10.9 Gout, unspecified
CPT/HCPCS: 36415; 80053; 80061; 84550; G0103

== ENCOUNTER → 2021-04-13 09:39 | Outpatient (CLI) | payer MEDICARE, SELFPAY ==
[2020-04-07 14:03] VITALS: BMI 29.1
[2021-04-13 10:25] LABS: COVID19 -Nasal RAPID Negative (Negative)
== END ==
PROVIDERS: PCP Internal Medicine; Referring Provider Surgery; Visit Provider Surgery
DX: Z01.812 Encounter for preprocedural laboratory examination (principal); Z20.822 Contact with and (suspected) exposure to COVID-19
CPT/HCPCS: 87635; C9803

== ENCOUNTER 2021-04-14 09:35 | Day surgery (SDC) | payer MEDICARE, OTHER, SELFPAY ==
[2020-04-07 14:03] VITALS: BMI 29.1
[2021-04-14] VITALS (7 sets, daily range): BP systolic 100–127; BP diastolic 63–73; PULSE 50–56; RESP 12–16; TEMP 36.1–36.8; O2SAT 94–99; BMI 24.7
--- NOTE | 2021-04-14 | PATH_ITS ---
[facility] Accession Number: [id number] . 01 Material submitted: . PART A: colon - COLON POLYP @90CM PART B: colon - COLON POLYP @40CM PART C: colon - COLON POLYP @15CM X2 . 02 Diagnosis: A. Colon, Polyp at 90 CM, Biopsy: Colonic mucosa with no diagnostic abnormality consistent with polypoid redundancy. Additional levels were examined. Negative for dysplasia and malignancy. . B. Colon, Polyp at 40 CM, Biopsy: Hyperplastic polyp. . C. Colon, Polyp at 15 CM x2 ,Biopsy: Tubular adenomas. [facility] 04/20/2021 1545 Local . 02 Electronically signed: . Madisyn Cole MD, Pathologist NPI- [id number] . 01 Gross description: . A. Specimen A is received in formalin labeled colon polyp 90 cm and consists of a 0.3 x 0.2 x 0.2 cm lloyd fragment of soft tissue, which is entirely submitted in cassette A1. B. Specimen B is received in formalin labeled colon polyp at 40 cm and consists of two lloyd-pink fragments of soft tissue, measuring 0.3 x 0.2 x 0.2 cm in aggregate. The specimen is entirely submitted in cassette B1. C. Specimen C is received in formalin labeled colon polyp at 15 cm and consists of two lloyd-pink fragments of soft tissue, measuring 0.5 x 0.4 x 0.3 cm in aggregate. The specimen is entirely submitted in cassette C1. ([id number]) /[facility] 04/15/2021 1817 Local . 02 Pathologist provided ICD-10: D12.6 . 02 CPT . 391290, [id number], [id number] Performed at: 01 [facility] [address] [place] [address], [place], [place] [id number] MD Rajat Nicole MD Phone: [phone] Performed at: [facility] [address] [place] [id number] MD Madisyn Cole MD Phone: [phone]
[2021-04-14] MEDS: SODIUM CHLORIDE 0.9% 1,000 ML 200 ML IV (10:03)
--- NOTE | 2021-04-14 10:17 | P.HP_ITS ---
History of Present Illness History of Present Illness Date Patient Seen: 04/14/21 Time Patient Seen: 10:17 Chief complaint: SDC Narrative: This is a 70-year-old man with history of 3 polyps found on his prior colonoscopy 3 years ago. He is here for follow-up surveillance colonoscopy. He denies any new symptoms such as melena, hematochezia, unexplained abdominal pain, or unexplained weight loss. He says he is otherwise in his usual state of health. ROS Thirteen system review is otherwise negative other than as mentioned below and in HPI. PE: GENERAL: Well groomed and cooperative. Appears stated age. Answers questions promptly and appropriately. Vital signs noted. HENT: Normocephalic, atraumatic. Hearing intact. EYES: Conjunctiva pink, sclera white, no periorbital swelling. CARDIOVASCULAR: Regular rate. No pedal edema. RESPIRATORY: Non-tachypneic, breathing comfortably on room air. GASTROINTESTINAL: Abdomen soft and non-distended GENITALURINARY: No flank tenderness. MUSCULOSKELETAL: Equal tone and mass bilaterally. SKIN: Warm, dry, soft, appropriate color for ethnicity. No other lesions, rashes, or wounds. NEURO: Alert and Oriented X 3. No gross sensory deficits, or cognitive issues. PSYCH: Appropriate affect and mood. Patient History Medical History Arthralgia (01/29/18) Arthritis Benign paroxysmal positional vertigo Cardiac arrhythmia Depression Diverticular disease of colon Dorsalgia (01/29/18) Erectile dysfunction Essential hypertension Fractures (~2012) Gastroesophageal reflux disease without esophagitis Generalized anxiety disorder (08/10/11) Gout Gout of multiple sites H/O adenomatous polyp of colon Hearing deficit Hearing impaired Herpes (~1977) HLD (hyperlipidemia) HTN (hypertension) Major depression in complete remission (08/10/11) Mixed hyperlipidemia Rosacea Sciatica Seasonal allergic rhinitis Uncomplicated opioid dependence (01/29/18) Surgical History Anesthesia H/O neck surgery (~01/2020) History of surgical removal of testicle (~1978) Hx of bilateral cataract extraction (~2016) S/P epidural steroid injection (~2007) Status post debridement (~2013) Family & Social History Family History Father Cancer Hypertension Stroke Sister Age: 71 Diabetes mellitus Sister Age: 65 COPD (chronic obstructive pulmonary disease) Stroke Grandfather Colon cancer Mother No problems noted. Social History: household members spouse lives independently Yes caregiver/support person No Tobacco & Substance use: Smoking Status Former smoker alcohol intake current alcohol intake frequency 0-2 drinks per day Substance Use Type marijuana Meds Home Medications and Allergies Home Medications Medication Instructions Recorded Confirmed Type acetaminophen 650 mg PO Q6HR PRN #30 tab 02/03/20 04/14/21 Rx cyclobenzaprine 5 mg PO TID PRN #40 tab 02/03/20 04/14/21 Rx metronidazole 1 % topical gel 1 applic TOPICAL BID PRN #60 gram 02/15/21 0 04/14/21 Rx allopurinol 300 mg tablet 300 mg PO Q DAY #90 tab 02/24/21 04/14/21 Rx celecoxib 200 mg capsule 200 mg PO DAILY #90 cap 02/24/21 04/14/21 Rx hydroxyzine HCl 25 mg tablet 25 mg PO BEDTIME #90 tab 02/24/21 04/14/21 Rx lisinopril 20 mg tablet 20 mg PO DAILY #90 tab 02/24/21 04/14/21 Rx simvastatin 20 mg tablet 20 mg PO DAILY #90 tab 02/24/21 04/14/21 Rx Allergies Allergy/AdvReac Type Severity Reaction Status Date / Time citalopram [CITALOPRAM] Allergy Mild HIVES Verified 02/24/21 15:19 Exam Vital Signs (past 8 hours): - 04/14/21 09:52 Temperature 98.2 F Pulse Rate 55 L Respiratory Rate 16 Blood Pressure 127/73 Pulse Oximetry 99 Oxygen Delivery Method Room Air Assessment & Plan Assessment and plan (1) H/O adenomatous polyp of colon: Problem details: 2017 large polyp no dysplasia Status: Inactive Assessment & Plan narrative: Risks and benefits of screening colonoscopy and possible polypectomy were discussed with the patient including risk of bleeding, perforation, need for additional procedures, risks of anesthesia. The patient desires to proceed with the colonoscopy procedure. COVID-19 COVID-19 status: Negative Result date/Date tested (Pos, Neg/Pending): 04/13/21 Time Spent With Patient Time with patient: 15-24 minutes Quality VTE Deep Vein Thrombosis/Pulmonary Embolism Present on Admission: No
--- NOTE | 2021-04-14 10:18 | P.OP.ENDO_ITS ---
Operative Date/Time/Diagnoses Date of procedure: 04/14/21 Time of procedure: 10:18 Pre-op diagnosis: Personal history of colon polyps Post-op diagnosis: other (4 small polyps found on today's exam) Procedure & Clinicians Study performed: Colonoscopy Procedural sedation performed by the endoscopy Polypectomy x4 with Jumbo forceps Same procedure as scheduled: Yes Indications: Personal history of colon polyps Surgeon: Reva Ramos Procedure Notes SCOAP/Timeout: Performed Procedure in detail: The patient was brought to the room and placed in left lateral decubitus position with all bony prominences padded. A time-out was performed and then the patient was given procedural sedation starting with 4 mg of Versed and 100 mcg of fentanyl. Vitals were monitored throughout the procedure and remained stable. Once adequately sedated, the procedure was begun. A rectal exam was performed revealing no abnormalities. The colonoscope was then introduced to the rectum and advanced to the cecum in the usual fashion. The cecum was identified by the appendiceal orifice, the mucosal tri- fold, and the ileocecal valve. The scope was then retracted while rotating side to side and examining each mucosal fold. Four small polyps were seen, 1 at 90 cm, 1 at 40 cm, 2 at 15 cm. Each was removed with Jumbo forceps. At the conclusion of the procedure retroflexion was performed and small grade 1-2 internal hemorrhoids without stigmata of bleeding were seen. The scope was then withdrawn from the rectum the procedure was concluded. The patient tolerated the procedure well and was transferred to the PACU in stable condition. Total of 8 mg of Versed and 200 micro g of fentanyl were given for the entire procedure. Scope withdrawal time: 17 Sedation minutes: 25 Findings: polyp Specimen(s): other (4 small polyps) Complications: none Impression: For small polyps were seen. They polyps at 90 cm and 40 cm looked very flat and may be residual from prior polypectomies. The 2 in the rectum were more prominent and adenomatous appearing. All were removed with Jumbo forceps. Post-procedure Recommendations: Other recommendation (Next scope will need to be done in 3-5 years. We will contact you once we get the pathology results and let you know final recommendation for timing of repeat colonoscopy.) Follow up: weeks Disposition: PACU
[2021-04-14] MEDS: fentaNYL 250 MCG/5 ML INJ IV (10:23)
[2021-04-14] MEDS: MIDAZOLAM 5 MG/5 ML VIAL IV (10:23)
== END 2021-04-14 11:38 | disposition home or self-care (01) ==
PROVIDERS: PCP Internal Medicine; Referring Provider Surgery; Visit Provider Surgery
PROC: 0DJD8ZZ Inspection of Lower Intestinal Tract, Via Natural or Artificial Opening Endoscopic (ICD-10-PCS; CPT 45378; principal; 2021-04-14 10:45)
DX: Z12.11 Encounter for screening for malignant neoplasm of colon (principal); Z86.010 Personal history of colon polyps; I10 Essential (primary) hypertension; E78.5 Hyperlipidemia, unspecified; K64.0 First degree hemorrhoids; D12.6 Benign neoplasm of colon, unspecified
CPT/HCPCS: 45380; 99152; J2250; J3010

== ENCOUNTER → 2022-07-06 07:19 | Outpatient (CLI) | payer MEDICARE, OTHER, SELFPAY ==
[2020-04-07 14:03] VITALS: BMI 29.1
[2022-07-06 15:18] LABS: Alanine Aminotransferase 10 IU/L (<50); Albumin 3.5 g/dL (3.5-5.0); Albumin Globulin Ratio 1.5 (1.0-2.8); Alkaline Phosphatase 56 U/L (38-126); Aspartate Aminotransferase 32 IU/L (17-59); BUN Creatinine Ratio 13.8 (6-22); Bilirubin Total 0.4 mg/dL (0.2-1.3); Blood Urea Nitrogen 13 mg/dL (9-20); Calcium 8.8 mg/dL (8.4-10.2); Carbon Dioxide 30 mmol/L (22-32); Chloride 107 mmol/L (98-107); Cholesterol 141 mg/dL (140-199); Estimated Glomerular Filt Rate > 60 mL/min (>60); Globulin 2.3 g/dL (1.7-4.1); Glucose 94 mg/dL (80-110); HDL Cholesterol 55 mg/dL (40-60); HEMOLYSIS < 15 (0-50); LDL Cholesterol Calculated 70 mg/dL (<100); Potassium 4.2 mmol/L (3.4-5.1); Sodium 139 mmol/L (137-145); Total Protein 5.8 g/dL (6.3-8.2); Triglycerides 78 mg/dL (35-150)
[2022-07-06 15:57] LABS: Prostate Specific Antigen Scrn 1.94 ng/mL (0.1-4.0)
== END ==
PROVIDERS: PCP Internal Medicine; Referring Provider Internal Medicine; Visit Provider Internal Medicine
DX: E78.2 Mixed hyperlipidemia (principal); Z12.5 Encounter for screening for malignant neoplasm of prostate; I10 Essential (primary) hypertension; I49.9 Cardiac arrhythmia, unspecified
CPT/HCPCS: 36415; 80053; 80061; G0103

== ENCOUNTER → 2024-12-25 09:23 | Outpatient (CLI) | payer MEDICARE, OTHER, SELFPAY ==
[2020-04-07 14:03] VITALS: BMI 29.1
--- NOTE | 2024-12-25 09:24 | DI.RAD.S_ITS ---
PROCEDURE: XR ANKLE LT MIN 3V INDICATIONS: Firm lesion superior to the lateral malleolus TECHNIQUE: 3 views of the ankle were acquired. COMPARISON: None. FINDINGS: Bones: No fractures or dislocations. Ankle mortise is normally aligned. No suspicious bony lesions. Soft tissues: No tibiotalar joint effusion. Achilles tendon appears normal. IMPRESSION: No acute bony abnormality or significant effusion. No suspicious bony lesion identified. Dictated by: Artis Arora M.D. on 12/25/2024 at 9:52 Approved by: Artis Arora M.D. on 12/25/2024 at 9:53
== END ==
PROVIDERS: PCP Internal Medicine; Referring Provider Physician Assistant Medical; Visit Provider Physician Assistant Medical
DX: M25.579 Pain in unspecified ankle and joints of unspecified foot (principal)
CPT/HCPCS: 73610

== ENCOUNTER → 2025-09-02 07:13 | Outpatient (CLI) | payer MEDICARE, OTHER, SELFPAY ==
[2020-04-07 14:03] VITALS: BMI 29.1
[2025-09-02 08:55] LABS: Alanine Aminotransferase 10 IU/L (<50); Albumin 4.1 g/dL (3.5-5.0); Albumin Globulin Ratio 1.6 (1.0-2.8); Alkaline Phosphatase 61 U/L (38-126); Blood Urea Nitrogen 21 mg/dL (9-20); Calcium 9.5 mg/dL (8.4-10.2); Carbon Dioxide 27 mmol/L (22-32); Chloride 105 mmol/L (98-107); Cholesterol 201 mg/dL (140-199); Estimated Glomerular Filt Rate > 60 mL/min (>60); Globulin 2.5 g/dL (1.7-4.1); Glucose 92 mg/dL (70-99); HDL Cholesterol 60 mg/dL (40-60); HEMOLYSIS < 15 (0-50); Potassium 4.3 mmol/L (3.4-5.1); Sodium 138 mmol/L (137-145); Total Protein 6.6 g/dL (6.3-8.2); Triglycerides 87 mg/dL (35-150); Uric Acid 4.3 mg/dL (3.5-8.5)
== END ==
PROVIDERS: PCP Internal Medicine; Referring Provider Internal Medicine; Visit Provider Internal Medicine
DX: I10 Essential (primary) hypertension (principal); E78.2 Mixed hyperlipidemia; F32.5 Major depressive disorder, single episode, in full remission; M1A.09X0 Idiopathic chronic gout, multiple sites, without tophus (tophi)
CPT/HCPCS: 36415; 80053; 80061; 84550

== ENCOUNTER 2025-10-08 07:32 | Outpatient (CLI) | payer MEDICARE, OTHER, SELFPAY ==
[2020-04-07 14:03] VITALS: BMI 29.1
[2025-10-08 08:11] VITALS: BP 125/60; PULSE 58; RESP 14; TEMP 36.6; O2SAT 98
[2025-10-08 08:28] VITALS: BP 118/64; PULSE 61; RESP 18; O2SAT 98
[2025-10-08] MEDS: LIDOCAINE 1% (PF) 5 ML INJ ×2 (08:30→08:32)
[2025-10-08 08:34] VITALS: BP 113/64; PULSE 59; RESP 16; O2SAT 98
[2025-10-08 08:38] VITALS: BP 120/70; PULSE 60; RESP 17; O2SAT 98
--- NOTE | 2025-10-08 12:07 | P.PCN_ITS ---
Date/Time/Diagnoses Date of procedure: 10/08/25 Time of procedure: 08:00 Pre-procedure diagnosis: Lumbar stenosis, lumbar radiculopathy Post-procedure diagnosis: same Procedure Notes Procedure: Interlaminar epidural steroid injection L3-4 Indications: Lumbar stenosis, lumbar radiculopathy Physician: Enrique Cole Total sedation minutes: 0 Complications: none Procedure in detail & Post-procedure care: Patient is here for the planned procedure today as noted. No significant change since the last office visit. For additional clinical scenario please see those office notes. Focused exam: Vital signs reviewed as charted on intake. Gen: Well developed. No acute distress. CV: RRR, no M/R/G Chest: Non-labored breathing, CTAB. Psych: Alert and well-oriented. Mood/Affect: normal. Patient suitable for the planned procedure today: Yes === The following procedure was performed in the office today: Lumbar Epidural Steroid Injection with fluoroscopic guidance - Interlaminar approach ([id number]) Levels Treated: L3-4 Approach: interlaminar Soft tissue: [1% lidocaine 2 mL] Test dose: [1% lidocaine 1 mL] Injectate: 1.5 mL of dexamethasone (10mg/mL) in 1 mL 1% lidocaine and 1.5 mL normal saline Fluoroscopy Agent: Isovue 300-M 1.5 mL Notes: Left paramedian. 4.5 in 20 gauge Touhy needle utilized and adequate. Preprocedure pain 2/10, postprocedure pain 0/10. Procedure: After discussing the risks, benefits, and alternatives to the procedure, the patient expressed understanding and wished to proceed. The risks include but are not limited to infection, allergic reaction, nerve damage, stroke, paralysis, epidural hematoma, syncope, headache, respiratory or cardiac arrest, spinal cord injury, and scar formation. Informed consent was obtained and all patient questions were answered. The patient was brought to the procedure suite and placed in the prone position. A pre-procedural pause was conducted to verify: correct patient identity, procedure to be performed and as applicable, correct side and site, correct pat ient position, and any special requirements. Using a paramedian approach from the side noted above, the region overlying the target was localized under fluoroscopic visualization and the soft tissues overlying this structure were infiltrated with the anesthetic listed above. With fluoroscopic guidance, a #20 gauge Tuohy needle (unless otherwise noted) was inserted into the epidural space using a paramedian approach. The epidural space was localized utilizing intermittent multiplanar fluoroscopic guidance and loss of resistance technique. After negative aspiration, the contrast noted above was injected into the epidural space and the flow of contrast was observed, confirming epidural spread without evidence of intravascular or intrathecal spread. Multi-planar radiographs were obtained for documentation purposes. A test dose of lidocaine was injected into the above noted epidural space, and the patient was observed for 30-60 seconds. No sensory deficits were reported and normal lower extremity motor function was noted. Subsequently, the injectate as noted above was administered into the level noted above. The patient tolerated the procedure well and was discharged after an appropriate period of observation. If there are any complications, the patient was instructed to call us. The patient is to follow-up with the requesting provider in 2-3 weeks. This note was compiled using voice recognition software and therefore may contain typos. Please contact the author with any questions or concerns.
== END 2025-10-08 09:07 | disposition home or self-care (01) ==
LOC: RAD 07:33
PROVIDERS: PCP Internal Medicine; Referring Provider Internal Medicine; Visit Provider Physical Medicine & Rehabilitation
DX: M54.16 Radiculopathy, lumbar region (principal); M48.061 Spinal stenosis, lumbar region without neurogenic claudication
CPT/HCPCS: 62323; J1100